=== PATIENT | female | born 1935 | race Caucasian/White ===

== ENCOUNTER 2017-08-19 11:35 | Inpatient (IN) | payer MEDICARE ==
[~2017-08-19] VITALS: Ht 165.1 cm; Wt 79.9 kg
[2017-08-19 12:51] LABS: BASOPHILS % (AUTO) 0.2 % (0.0-5.0); EOSINOPHILS % (AUTO) 0.4 % (0.0-8.0); HEMATOCRIT 34.5 % (36-48); LYMPHOCYTES % (AUTO) 11.8 % (21.0-51.0); MEAN CORPUSCULAR HEMOGLOBIN 30.4 pg (27.0-33.0); MEAN CORPUSCULAR HGB CONC 34.3 g/dL (32.0-36.0); MEAN CORPUSCULAR VOLUME 88.7 fL (79-99); MONOCYTES % (AUTO) 9.6 % (3.0-13.0); PLATELET COUNT (AUTO) 306 K/uL (130-400); RED BLOOD CELL COUNT(AUTO) 3.89 MIL/uL (4.00-5.50); RED CELL DISTRIBUTION WIDTH 12.9 % (11.0-15.5); WHITE BLOOD COUNT (AUTO) 9.5 K/uL (4.8-10.8)
[2017-08-19 12:54] LABS: ALBUMIN 2.4 g/dL (3.5-5.0); BILIRUBIN,TOTAL 0.5 mg/dL (0.2-1.0); CREATININE 0.9 mg/dL (0.5-1.5); TOTAL PROTEIN, SERUM 6.4 g/dL (6.0-8.3)
[2017-08-19 13:00] LABS: POTASSIUM 2.5 mmol/L (3.5-5.1)
[2017-08-19] MEDS ORDERED: MAGNESIUM OXIDE 400 MG TABLET PO ONE (13:47)
[2017-08-19] MEDS ORDERED: CALCIUM GLUCONATE 1 GM/10 ML VIAL IV ONE (13:47)
[2017-08-19] MEDS ORDERED: POTASSIUM BICARB/CIT AC 25 MEQ TABLET.EFF ONE (13:47)
[2017-08-19] MEDS ORDERED: DEXTROSE 5%-WATER 50 ML IV ONE (13:48)
[2017-08-19] MEDS ORDERED: POTASSIUM CHLORIDE 20MEQ/100ML 100 ML IV ONE (19:30)
[2017-08-19] MEDS ORDERED: POTASSIUM CHLORIDE 10% ELIXIR 20 MEQ/15 ML UDCUP PO PRN (21:00)
[2017-08-19] MEDS ORDERED: POTASSIUM CHLORIDE 20MEQ/100ML 100 ML IV PRN (21:00)
[2017-08-19] MEDS ORDERED: LIDOCAINE HCL-MPF 1% 2ML VIAL IVP PRN ×2 (21:00)
[2017-08-19] MEDS ORDERED: POTASSIUM CHLORIDE 20 MEQ ERTAB PO PRN ×2 (21:00)
[2017-08-19] MEDS ORDERED: GLUCAGON 1MG KIT 1 MG ML IM PRN (21:15)
[2017-08-19] MEDS ORDERED: ONDANSETRON HCL MDV 20ML 2 MG/ML VIAL IVP PRN (21:15)
[2017-08-19] MEDS ORDERED: MAGNESIUM SULFATE 1 GM in SODIUM CHLORIDE 0.9% 50 ML IV SCH (21:15)
[2017-08-19] MEDS ORDERED: ACETAMINOPHEN 325 MG TAB PO PRN (21:15)
[2017-08-19] MEDS ORDERED: DEXTROSE 50%-WATER 50 ML DISP.SYRIN IV PRN (21:15)
[2017-08-19 21:34] VITALS: BP 162/80
[2017-08-19 23:25] VITALS: BP 159/62
[2017-08-20] MEDS: LEVOFLOXACIN 500 MG/D5W 100 ML 100 ML IV SCH ×2 (00:35→23:14)
[2017-08-20 03:35] VITALS: BP 165/84
[2017-08-20 05:21] LABS: HEMATOCRIT 33.8 % (36-48); MEAN CORPUSCULAR HGB CONC 35.2 g/dL (32.0-36.0); MEAN CORPUSCULAR VOLUME 88.2 fL (79-99); PLATELET COUNT (AUTO) 323 K/uL (130-400); RED BLOOD CELL COUNT(AUTO) 3.83 MIL/uL (4.00-5.50)
[2017-08-20 05:34] LABS: ALBUMIN 2.4 g/dL (3.5-5.0); BILIRUBIN,TOTAL 0.4 mg/dL (0.2-1.0); CREATININE 0.7 mg/dL (0.5-1.5); TOTAL PROTEIN, SERUM 6.6 g/dL (6.0-8.3)
[2017-08-20 05:36] LABS: POTASSIUM 2.7 mmol/L (3.5-5.1)
[2017-08-20] MEDS: POTASSIUM CHLORIDE 20MEQ/100ML 100 ML IV PRN ×2 (05:39→11:55)
[2017-08-20] MEDS: INSULIN HUMULIN R 100 UNIT/ML 3ML SQ SCH ×4 (07:26→21:00)
[2017-08-20 08:00] VITALS: BP 152/91
[2017-08-20] MEDS ORDERED: ONDANSETRON HCL 4 MG/2 ML VIAL ONE (08:02)
[2017-08-20] MEDS ORDERED: ENOXAPARIN SODIUM 40 MG/0.4 ML SYRINGE SQ SCH (09:00)
[2017-08-20] MEDS: MAGNESIUM 2GM PREMIX 50ML 50 ML IV SCH (09:30)
[2017-08-20 11:00] VITALS: BP 153/79
[2017-08-20] MEDS: SODIUM CHLORIDE 0.9% 1000ML 1,000 ML IV SCH (11:55)
[2017-08-20 16:00] VITALS: BP 154/79
[2017-08-20] MEDS ORDERED: AMIO100T4 PO (16:04)
[2017-08-20] MEDS ORDERED: METF500T6 PO (16:04)
[2017-08-20] MEDS ORDERED: METO-472 PO (16:04)
[2017-08-20] MEDS ORDERED: IRBE1TAB43 PO (16:04)
[2017-08-20] MEDS ORDERED: APIX2.5T PO (16:04)
[2017-08-20] MEDS ORDERED: SIMV40TA59 PO (16:04)
[2017-08-20] MEDS: POTASSIUM CHLORIDE 10% ELIXIR 20 MEQ/15 ML UDCUP PO PRN ×2 (16:40→21:14)
[2017-08-20 19:35] VITALS: BP 161/95
[2017-08-20] MEDS ORDERED: AMIODARONE HCL 200 MG TABLET PO STA (21:03)
[2017-08-20] MEDS: APIXABAN 2.5 MG TABLET PO SCH (21:13)
[2017-08-20] MEDS: ATORVASTATIN CALCIUM 20 MG TABLET PO SCH (21:13)
[2017-08-20] MEDS ORDERED: LABETALOL 20 MG/4 ML DISP.SYRIN IV PRN (23:15)
[2017-08-20 23:20] VITALS: BP 169/108
[2017-08-21 03:40] VITALS: BP 140/75
[2017-08-21] MEDS: INSULIN HUMULIN R 100 UNIT/ML 3ML SQ SCH ×4 (05:26→20:35)
[2017-08-21 05:59] LABS: BASOPHILS % (AUTO) 0.3 % (0.0-5.0); EOSINOPHILS % (AUTO) 1.7 % (0.0-8.0); HEMATOCRIT 35.6 % (36-48); LYMPHOCYTES % (AUTO) 13.7 % (21.0-51.0); MEAN CORPUSCULAR HEMOGLOBIN 31.3 pg (27.0-33.0); MEAN CORPUSCULAR HGB CONC 34.7 g/dL (32.0-36.0); MEAN CORPUSCULAR VOLUME 90.3 fL (79-99); MONOCYTES % (AUTO) 8.3 % (3.0-13.0); PLATELET COUNT (AUTO) 337 K/uL (130-400); RED BLOOD CELL COUNT(AUTO) 3.95 MIL/uL (4.00-5.50); RED CELL DISTRIBUTION WIDTH 13.1 % (11.0-15.5); WHITE BLOOD COUNT (AUTO) 8.1 K/uL (4.8-10.8)
[2017-08-21 06:07] LABS: CREATININE 0.7 mg/dL (0.5-1.5); POTASSIUM 3.5 mmol/L (3.5-5.1)
[2017-08-21] MEDS: POTASSIUM CHLORIDE 10% ELIXIR 20 MEQ/15 ML UDCUP PO PRN ×2 (06:14→17:25)
[2017-08-21] MEDS: MAGNESIUM 2GM PREMIX 50ML 50 ML IV SCH (06:15)
[2017-08-21] MEDS ORDERED: METOPROLOL TARTRATE 50 MG TAB ONE (06:52)
[2017-08-21] MEDS ORDERED: AMIODARONE HCL 200 MG TABLET PO ONE (06:52)
[2017-08-21] MEDS: AMIODARONE HCL 200 MG TABLET PO SCH (06:54)
[2017-08-21] MEDS: METOPROLOL TARTRATE 50 MG TAB PO SCH (06:54)
[2017-08-21 08:49] VITALS: BP 125/66
[2017-08-21 08:55] VITALS: BP 170/104
[2017-08-21] MEDS: METFORMIN HCL 500 MG TABLET PO SCH ×2 (09:01→16:43)
[2017-08-21] MEDS: APIXABAN 2.5 MG TABLET PO SCH ×2 (09:02→20:30)
[2017-08-21] MEDS: SODIUM CHLORIDE 0.9% 1000ML 1,000 ML IV SCH (09:03)
[2017-08-21] MEDS: HYDROCHLOROTHIAZIDE PO SCH (10:15)
[2017-08-21] MEDS: IRBESARTAN PO SCH (10:15)
[2017-08-21] MEDS: [UNRECOGNIZED DRUG - OTHER] PO SCH (10:15)
[2017-08-21] MEDS ORDERED: MAGNESIUM 2GM PREMIX 50ML 50 ML IV SCH (11:30)
[2017-08-21 12:14] VITALS: BP 182/82
[2017-08-21] MEDS: HYDRALAZINE HCL 20 MG/ML VIAL IV PRN (13:07)
[2017-08-21] MEDS ORDERED: ZOLPIDEM TARTRATE 5 MG TAB PO PRN (14:30)
[2017-08-21 16:44] VITALS: BP 177/88
[2017-08-21] MEDS: CLONIDINE HCL 0.1 MG TABLET PO PRN (16:44)
[2017-08-21 19:20] VITALS: BP 141/80
[2017-08-21] MEDS: ATORVASTATIN CALCIUM 20 MG TABLET PO SCH (20:30)
[2017-08-21] MEDS: LEVOFLOXACIN 500 MG/D5W 100 ML 100 ML IV SCH (23:10)
[2017-08-22 00:04] VITALS: BP 166/71
[2017-08-22 04:05] VITALS: BP 154/93
[2017-08-22 05:41] LABS: BASOPHILS % (AUTO) 0.2 % (0.0-5.0); EOSINOPHILS % (AUTO) 3.1 % (0.0-8.0); HEMATOCRIT 38.8 % (36-48); LYMPHOCYTES % (AUTO) 15.6 % (21.0-51.0); MEAN CORPUSCULAR HEMOGLOBIN 30.9 pg (27.0-33.0); MEAN CORPUSCULAR HGB CONC 34.1 g/dL (32.0-36.0); MEAN CORPUSCULAR VOLUME 90.8 fL (79-99); MONOCYTES % (AUTO) 9.8 % (3.0-13.0); NEUTROPHILS % (AUTO) 71.3 % (40.0-77.0); PLATELET COUNT (AUTO) 363 K/uL (130-400); RED BLOOD CELL COUNT(AUTO) 4.28 MIL/uL (4.00-5.50); RED CELL DISTRIBUTION WIDTH 13.5 % (11.0-15.5); WHITE BLOOD COUNT (AUTO) 8.8 K/uL (4.8-10.8)
[2017-08-22] MEDS: INSULIN HUMULIN R 100 UNIT/ML 3ML SQ SCH ×2 (05:46→11:30)
[2017-08-22 06:46] LABS: CREATININE 0.7 mg/dL (0.5-1.5); POTASSIUM 4.1 mmol/L (3.5-5.1)
[2017-08-22 07:00] VITALS: BP 153/95
[2017-08-22] MEDS: HYDROCHLOROTHIAZIDE PO SCH (09:00)
[2017-08-22] MEDS: [UNRECOGNIZED DRUG - OTHER] PO SCH (09:00)
[2017-08-22] MEDS: IRBESARTAN PO SCH (09:00)
[2017-08-22] MEDS: AMIODARONE HCL 200 MG TABLET PO SCH (09:12)
[2017-08-22] MEDS: METOPROLOL TARTRATE 50 MG TAB PO SCH (09:15)
[2017-08-22] MEDS: APIXABAN 2.5 MG TABLET PO SCH (09:15)
[2017-08-22] MEDS: METFORMIN HCL 500 MG TABLET PO SCH ×2 (09:16→15:32)
[2017-08-22 11:00] VITALS: BP 148/75
[2017-08-22] MEDS ORDERED: IRBE300T19 PO (13:57)
[2017-08-22] MEDS: CLONIDINE HCL 0.1 MG TABLET PO PRN (15:33)
[2017-08-22] MEDS: HYDRALAZINE HCL 20 MG/ML VIAL IV PRN (15:59)
[2017-08-22 16:00] VITALS: BP 173/85
== END 2017-08-22 17:59 | disposition home or self-care (01) | DRG 641 ==
LOC: EDH 11:35 → EDHIP 15:13 → 3AH 19:51
PROVIDERS: ADMIT Family Medicine; ATTEND Family Medicine
DX: E87.6 Hypokalemia (principal); E83.42 Hypomagnesemia; E83.51 Hypocalcemia; I48.91 Unspecified atrial fibrillation; I10 Essential (primary) hypertension; E11.9 Type 2 diabetes mellitus without complications; E78.5 Hyperlipidemia, unspecified; K58.0 Irritable bowel syndrome with diarrhea; Z87.01 Personal history of pneumonia (recurrent); Z79.01 Long term (current) use of anticoagulants; Z80.1 Family history of malignant neoplasm of trachea, bronchus and lung; Z82.49 Family history of ischemic heart disease and other diseases of the circulatory system; Z90.710 Acquired absence of both cervix and uterus; Z98.49 Cataract extraction status, unspecified eye; Z88.2 Allergy status to sulfonamides; M19.90 Unspecified osteoarthritis, unspecified site
CPT/HCPCS: 36415; 80048; 80053; 82550; 82948; 83735; 84132; 84443; 85025; 85027; 93005; 97039; J0360; J0610; J1650; J1956; J2405; J3475; J3480; J3490; J7060

== ENCOUNTER → 2018-06-22 | Outpatient (CLI) | payer MEDICARE ==
[~2018-06-22] MED LIST: AMIO100T4 PO; APIX2.5T PO; IRBE300T19 PO; METF-444 PO; METO-472 PO; SIMV40TA59 PO
== END | disposition home or self-care (01) ==
LOC: RAH 09:33
PROVIDERS: ATTEND Internal Medicine
DX: I65.23 Occlusion and stenosis of bilateral carotid arteries (principal); I10 Essential (primary) hypertension; G45.9 Transient cerebral ischemic attack, unspecified
CPT/HCPCS: 76770; 93880; 93975

== ENCOUNTER → 2018-07-28 | Outpatient (CLI) | payer MEDICARE | END | disposition home or self-care (01) | LOC: RAH 07:32 | PROVIDERS: ATTEND Internal Medicine | DX: R10.11 Right upper quadrant pain (principal); R11.0 Nausea | CPT/HCPCS: 76700 ==

== ENCOUNTER → 2019-05-18 | Outpatient (CLI) | payer MEDICARE ==
[~2019-05-18] MED LIST changes: +IRBE300T18 PO; -IRBE300T19 PO
== END | disposition home or self-care (01) ==
LOC: SHCH 08:48
PROVIDERS: ATTEND Internal Medicine Cardiovascular Disease
DX: I65.22 Occlusion and stenosis of left carotid artery (principal)
CPT/HCPCS: 93880

== ENCOUNTER → 2020-09-10 | Outpatient (CLI) | payer MEDICARE | END | disposition home or self-care (01) | LOC: SHCH 09:13 | PROVIDERS: ATTEND Internal Medicine Cardiovascular Disease | DX: I65.23 Occlusion and stenosis of bilateral carotid arteries (principal) | CPT/HCPCS: 93880 ==

== ENCOUNTER → 2021-05-28 | Outpatient (CLI) | payer OTHER | END | disposition home or self-care (01) | LOC: SHCH 14:19 | PROVIDERS: ATTEND Internal Medicine Cardiovascular Disease | DX: I35.8 Other nonrheumatic aortic valve disorders (principal); I11.9 Hypertensive heart disease without heart failure; E11.9 Type 2 diabetes mellitus without complications; E78.5 Hyperlipidemia, unspecified; E66.9 Obesity, unspecified | CPT/HCPCS: 93306 ==

== ENCOUNTER 2021-09-09 18:16 | Emergency (ER) | payer OTHER ==
[~2021-09-09] VITALS: Ht 165.1 cm; Wt 79.4 kg
[2021-09-09 18:48] LABS: BASOPHILS % (AUTO) 0.3 % (0.0-5.0); EOSINOPHILS % (AUTO) 0.3 % (0.0-8.0); HEMATOCRIT 38.8 % (36-48); LYMPHOCYTES % (AUTO) 18.3 % (21.0-51.0); MEAN CORPUSCULAR HGB CONC 33.5 g/dL (32.0-36.0); MEAN CORPUSCULAR VOLUME 89.4 fL (79-99); MONOCYTES % (AUTO) 5.4 % (3.0-13.0); NEUTROPHILS % (AUTO) 75.4 % (40.0-77.0); PLATELET COUNT (AUTO) 236 K/uL (130-400); RED BLOOD CELL COUNT(AUTO) 4.34 MIL/uL (4.00-5.50); RED CELL DISTRIBUTION WIDTH 12.6 % (11.0-15.5); WHITE BLOOD COUNT (AUTO) 10.1 K/uL (4.8-10.8)
[2021-09-09 19:00] LABS: CREATININE 1.1 mg/dL (0.5-1.5); POTASSIUM 3.1 mmol/L (3.5-5.1)
[2021-09-09 19:07] LABS: ALBUMIN 3.9 g/dL (3.5-5.0); BILIRUBIN,TOTAL 0.4 mg/dL (0.2-1.0); TOTAL PROTEIN, SERUM 8.1 g/dL (6.0-8.3)
[2021-09-09 19:25] LABS: APPEARANCE,URINE Clear (CLEAR); BILIRUBIN,URINE Negative (NEGATIVE); COLOR,URINE Yellow (YELLOW); GLUCOSE, URINE (UA) Negative (NEGATIVE); KETONES,URINE Negative (NEGATIVE); LEUKOCYTE ESTERASE ,URINE Small (NEGATIVE); NITRATE,URINE Negative (NEGATIVE); OCCULT BLOOD,URINE Trace (NEGATIVE); PH,URINE 6.5 (5.0-8.0); PROTEIN,URINE POS 2+ mg/dL (NEGATIVE)
[2021-09-09] MEDS ORDERED: NIFEDIPINE 10 MG CAP PO ONE (19:30)
[2021-09-09] MEDS ORDERED: 0.9% NACL 500ML IV.SOLN 500 ML IV ONE (19:30)
[2021-09-09] MEDS ORDERED: AMOX/CLAV 875/125MG TAB PO ONE (19:30)
[2021-09-09] MEDS ORDERED: PREDNISONE 20 MG TABLET PO ONE (19:30)
[2021-09-09 19:40] LABS: BACTERIA,URINE Few /HPF (None Seen); RBC,URINE 0-1 /HPF (0-1)
[2021-09-09 19:41] LABS: SQUAMOUS EPITHELIAL CELL,UR Rare /HPF (0-2)
[2021-09-09] MEDS ORDERED: POTASSIUM BICARB/CIT AC 25 MEQ TABLET.EFF PO ONE (20:30)
[2021-09-09] MEDS ORDERED: CEFTRIAXONE 1G VIAL IVP ONE (20:30)
[2021-09-09 20:38] VITALS: BP 167/74
[2021-09-09] MEDS ORDERED: CEPH500B PO (20:47)
== END 2021-09-09 21:38 | disposition home or self-care (01) ==
LOC: EDH 18:16
DX: I10 Essential (primary) hypertension (principal); N39.0 Urinary tract infection, site not specified; E11.9 Type 2 diabetes mellitus without complications; E78.00 Pure hypercholesterolemia, unspecified; Z79.01 Long term (current) use of anticoagulants; Z79.52 Long term (current) use of systemic steroids; Z79.899 Other long term (current) drug therapy; Z88.2 Allergy status to sulfonamides
CPT/HCPCS: 36415; 71045; 80053; 81001; 84484; 85025; 87088; 93005; 96372; 99285; J0696; 96374; J7040

== ENCOUNTER → 2021-11-02 | Outpatient (CLI) | payer OTHER ==
[~2021-11-02] MED LIST changes: +CEPH500B PO
[2021-11-02 12:31] LABS: BASOPHILS % (AUTO) 0.4 % (0.0-5.0); EOSINOPHILS % (AUTO) 1.6 % (0.0-8.0); HEMATOCRIT 36.8 % (36-48); LYMPHOCYTES % (AUTO) 24.9 % (21.0-51.0); MEAN CORPUSCULAR HEMOGLOBIN 29.5 pg (27.0-33.0); MEAN CORPUSCULAR HGB CONC 32.1 g/dL (32.0-36.0); MONOCYTES % (AUTO) 10.4 % (3.0-13.0); NEUTROPHILS % (AUTO) 62.3 % (40.0-77.0); PLATELET COUNT (AUTO) 302 K/uL (130-400); RED CELL DISTRIBUTION WIDTH 12.8 % (11.0-15.5); WHITE BLOOD COUNT (AUTO) 7.3 K/uL (4.8-10.8)
[2021-11-02 12:52] LABS: CREATININE 1.1 mg/dL (0.5-1.5); MAGNESIUM 1.7 mg/dL (1.80-2.40); POTASSIUM 4.1 mmol/L (3.5-5.1)
[2021-11-02 13:14] LABS: APPEARANCE,URINE CLEAR (CLEAR); BILIRUBIN,URINE NEGATIVE (NEGATIVE); COLOR,URINE YELLOW (YELLOW); GLUCOSE, URINE (UA) NEGATIVE (NEGATIVE); KETONES,URINE NEGATIVE (NEGATIVE); LEUKOCYTE ESTERASE ,URINE MODERATE (NEGATIVE); NITRATE,URINE NEGATIVE (NEGATIVE); OCCULT BLOOD,URINE NEGATIVE (NEGATIVE); PROTEIN,URINE NEGATIVE (NEGATIVE); UROBILINOGEN,URINE 0.2 mg/dL (0.2-1.0)
[2021-11-02 13:29] LABS: BACTERIA,URINE Rare /HPF (None Seen); RBC,URINE 0-1 /HPF (0-1); SQUAMOUS EPITHELIAL CELL,UR Rare /HPF (0-2)
== END | disposition home or self-care (01) ==
LOC: LAB 08:20
PROVIDERS: ATTEND Physician Assistant
DX: I48.0 Paroxysmal atrial fibrillation (principal); Z79.899 Other long term (current) drug therapy
CPT/HCPCS: 36415; 80048; 81001; 83735; 85025; 87077; 87088; 87186

== ENCOUNTER 2022-07-26 11:37 | Observation (INO) | payer OTHER ==
[~2022-07-26] VITALS: Ht 167.6 cm; Wt 74.4 kg
[2022-07-26 12:28] LABS: CREATININE 1.1 mg/dL (0.5-1.5); POTASSIUM 3.7 mmol/L (3.5-5.1)
[2022-07-26 12:30] LABS: BASOPHILS % (AUTO) 0.4 % (0.0-5.0); EOSINOPHILS % (AUTO) 0.5 % (0.0-8.0); HEMATOCRIT 33.7 % (36-48); MEAN CORPUSCULAR HEMOGLOBIN 29.7 pg (27.0-33.0); MEAN CORPUSCULAR VOLUME 92.6 fL (79-99); NEUTROPHILS % (AUTO) 80.7 % (40.0-77.0); PLATELET COUNT (AUTO) 303 K/uL (130-400); RED BLOOD CELL COUNT(AUTO) 3.64 MIL/uL (4.00-5.50); RED CELL DISTRIBUTION WIDTH 13.2 % (11.0-15.5); WHITE BLOOD COUNT (AUTO) 9.5 K/uL (4.8-10.8)
[2022-07-26 12:33] LABS: ALBUMIN 3.8 g/dL (3.5-5.0); TOTAL PROTEIN, SERUM 7.7 g/dL (6.0-8.3)
[2022-07-26 13:01] LABS: B-TYPE NATRIURETIC PEPTIDE 1080 pg/mL (0-100)
[2022-07-26] MEDS ORDERED: FUROSEMIDE 20MG VIAL IV ONE (13:30)
[2022-07-26] MEDS ORDERED: MAGNESIUM 2GM PREMIX 50ML 50 ML IV SCH (14:00)
[2022-07-26] MEDS ORDERED: FUROSEMIDE 40MG VIAL IV SCH (15:00)
[2022-07-26] MEDS ORDERED: DEXTROSE 50%-WATER 50 ML DISP.SYRIN IV PRN (15:00)
[2022-07-26] MEDS ORDERED: MAGNESIUM 2GM PREMIX 50ML 50 ML IV PRN (15:00)
[2022-07-26] MEDS ORDERED: GLUCAGON 1MG KIT 1 MG ML IM PRN (15:00)
[2022-07-26] MEDS ORDERED: ACETAMINOPHEN 325 MG TAB PO PRN (15:00)
[2022-07-26] MEDS ORDERED: POTASSIUM CHLORIDE 20MEQ/100ML 100 ML IV PRN (15:00)
[2022-07-26] MEDS ORDERED: ONDANSETRON 4MG INJ IVP PRN (15:00)
[2022-07-26] MEDS ORDERED: KCL 20 MEQ ERTAB PO PRN (15:00)
[2022-07-26 16:14] LABS: RETICULOCYTE % (AUTO) 1.9 % (0.42-2.23)
[2022-07-26] MEDS: INSULIN HUMULIN R 100 UNIT/ML 3ML SQ SCH ×2 (16:22→20:09)
[2022-07-26 16:58] LABS: HEMOGLOBIN A1C 6.2 % (4.0-6.0)
[2022-07-26 17:10] VITALS: BP 142/82
[2022-07-26] MEDS: METOPROLOL TARTRATE 25 MG TAB PO SCH ×2 (17:24→21:10)
[2022-07-26 17:38] LABS: % IRON SATURATION 8.2 % (22-44)
[2022-07-26 19:46] VITALS: BP 149/97
[2022-07-26] MEDS ORDERED: METOPROLOL TARTRATE 25 MG TAB PO SCH (21:00)
[2022-07-26] MEDS: ATORVASTATIN 10 MG TABLET PO SCH (21:10)
[2022-07-26] MEDS: APIXABAN 5 MG TABLET PO SCH (21:10)
[2022-07-26] MEDS: IPRATROPIUM 0.5 MG/2.5 ML INH IH PRN (23:25)
[2022-07-27] VITALS (8 sets, daily range): BP systolic 110–156; BP diastolic 69–99
[2022-07-27 03:53] LABS: BASOPHILS % (AUTO) 0.2 % (0.0-5.0); EOSINOPHILS % (AUTO) 0.5 % (0.0-8.0); HEMATOCRIT 32.7 % (36-48); LYMPHOCYTES % (AUTO) 15.2 % (21.0-51.0); MEAN CORPUSCULAR HEMOGLOBIN 29.7 pg (27.0-33.0); MEAN CORPUSCULAR HGB CONC 32.1 g/dL (32.0-36.0); MEAN CORPUSCULAR VOLUME 92.4 fL (79-99); MONOCYTES % (AUTO) 8.8 % (3.0-13.0); NEUTROPHILS % (AUTO) 74.9 % (40.0-77.0); PLATELET COUNT (AUTO) 260 K/uL (130-400); RED BLOOD CELL COUNT(AUTO) 3.54 MIL/uL (4.00-5.50); RED CELL DISTRIBUTION WIDTH 13.2 % (11.0-15.5); WHITE BLOOD COUNT (AUTO) 10.2 K/uL (4.8-10.8)
[2022-07-27 04:04] LABS: ALBUMIN 3.6 g/dL (3.5-5.0); MAGNESIUM 1.7 mg/dL (1.80-2.40); POTASSIUM 3.2 mmol/L (3.5-5.1); TOTAL PROTEIN, SERUM 7.1 g/dL (6.0-8.3)
[2022-07-27 04:53] LABS: B-TYPE NATRIURETIC PEPTIDE 1610 pg/mL (0-100)
[2022-07-27] MEDS: METOPROLOL TARTRATE 25 MG TAB PO SCH ×3 (05:42→21:31)
[2022-07-27] MEDS: FUROSEMIDE 40MG VIAL IV SCH ×2 (05:42→17:21)
[2022-07-27] MEDS: INSULIN HUMULIN R 100 UNIT/ML 3ML SQ SCH ×4 (05:43→21:00)
[2022-07-27] MEDS: IPRATROPIUM 0.5 MG/2.5 ML INH IH PRN ×2 (06:47→11:01)
[2022-07-27] MEDS ORDERED: MAGNESIUM 2GM PREMIX 50ML 50 ML IV SCH (07:00)
[2022-07-27] MEDS ORDERED: KCL 20 MEQ ERTAB PO SCH (07:00)
[2022-07-27] MEDS ORDERED: POTASSIUM CHLORIDE 20 MEQ/100 ML BAG IV SCH (07:00)
[2022-07-27] MEDS: LOSARTAN 100 MG TABLET PO SCH (08:58)
[2022-07-27] MEDS: PANTOPRAZOLE 40 MG TAB DR PO SCH (08:58)
[2022-07-27] MEDS: APIXABAN 5 MG TABLET PO SCH ×2 (08:59→20:00)
[2022-07-27] MEDS: AMLODIPINE 2.5 MG TAB PO SCH (08:59)
[2022-07-27] MEDS ORDERED: PHARMACY COMMUNICATION MISC SCH (13:30)
[2022-07-27] MEDS: POTASSIUM CHLORIDE 10% ELIXIR 20 MEQ/15 ML UDCUP PO PRN ×2 (18:21→20:00)
[2022-07-27] MEDS: ATORVASTATIN 10 MG TABLET PO SCH (20:00)
[2022-07-28] MEDS: POTASSIUM CHLORIDE 10% ELIXIR 20 MEQ/15 ML UDCUP PO PRN (00:10)
[2022-07-28] MEDS: FUROSEMIDE 40MG VIAL IV SCH (04:11)
[2022-07-28 04:12] LABS: HEMATOCRIT 32.2 % (36-48); MEAN CORPUSCULAR HEMOGLOBIN 29.6 pg (27.0-33.0); MEAN CORPUSCULAR VOLUME 92.5 fL (79-99); RED BLOOD CELL COUNT(AUTO) 3.48 MIL/uL (4.00-5.50); RED CELL DISTRIBUTION WIDTH 13.3 % (11.0-15.5); WHITE BLOOD COUNT (AUTO) 9.6 K/uL (4.8-10.8)
[2022-07-28 04:28] LABS: ALBUMIN 3.5 g/dL (3.5-5.0); CREATININE 1.1 mg/dL (0.5-1.5)
[2022-07-28 04:53] VITALS: BP 138/83
[2022-07-28] MEDS: METOPROLOL TARTRATE 25 MG TAB PO SCH (05:01)
[2022-07-28] MEDS: IPRATROPIUM 0.5 MG/2.5 ML INH IH PRN (07:08)
[2022-07-28] MEDS: INSULIN HUMULIN R 100 UNIT/ML 3ML SQ SCH ×2 (07:30→11:30)
[2022-07-28] MEDS: LOSARTAN 100 MG TABLET PO SCH (08:15)
[2022-07-28] MEDS: AMLODIPINE 2.5 MG TAB PO SCH (08:15)
[2022-07-28] MEDS: APIXABAN 5 MG TABLET PO SCH (08:15)
[2022-07-28] MEDS: PANTOPRAZOLE 40 MG TAB DR PO SCH (08:15)
[2022-07-28 08:51] VITALS: BP 141/79
[2022-07-28] MEDS ORDERED: FUROSEMIDE 20 MG TABLET PO SCH (09:00)
[2022-07-28] MEDS ORDERED: METOPROLOL SUCCINATE 50 MG TAB.SR.24H PO SCH (09:15)
[2022-07-28 12:57] VITALS: BP 149/86
== END 2022-07-28 14:20 | disposition home or self-care (01) ==
LOC: EDH 11:37 → EDHIP 14:37 → 2AH 16:29
PROVIDERS: ADMIT Hospitalist; ATTEND Hospitalist
DX: J96.01 Acute respiratory failure with hypoxia (principal); I48.20 Chronic atrial fibrillation, unspecified; E83.42 Hypomagnesemia; I11.0 Hypertensive heart disease with heart failure; I50.32 Chronic diastolic (congestive) heart failure; E11.9 Type 2 diabetes mellitus without complications; D64.9 Anemia, unspecified; G47.00 Insomnia, unspecified; E66.9 Obesity, unspecified; E78.00 Pure hypercholesterolemia, unspecified; H81.09 Meniere's disease, unspecified ear; K59.00 Constipation, unspecified; R74.8 Abnormal levels of other serum enzymes; K58.9 Irritable bowel syndrome, unspecified; B34.9 Viral infection, unspecified; Z79.01 Long term (current) use of anticoagulants; Z79.899 Other long term (current) drug therapy; Z90.710 Acquired absence of both cervix and uterus; Z79.84 Long term (current) use of oral hypoglycemic drugs; Z98.49 Cataract extraction status, unspecified eye; Z68.26 Body mass index [BMI] 26.0-26.9, adult
CPT/HCPCS: 96365; 96366 ×2; 96375; 99285; 83036; 83735 ×2; 84484; 80053 ×3; 83880 ×2; 82728; 85025 ×2; 82948 ×8; 82607; 36415 ×3; 71045; 93005 ×2; 94640 ×4; 94664; 96376 ×2; 96361; 84132; 93306; 93356; 85027; G0378 ×45; J3475 ×2; J1940 ×4; J3480

== ENCOUNTER → 2022-08-09 | Outpatient (CLI) | payer OTHER ==
[~2022-08-09] MED LIST changes: -AMIO100T4 PO; -APIX2.5T PO; -IRBE300T18 PO; -METO-472 PO
[2022-08-09 13:26] LABS: ALBUMIN 3.8 g/dL (3.5-5.0); MAGNESIUM 1.3 mg/dL (1.80-2.40); POTASSIUM 3.8 mmol/L (3.5-5.1); TOTAL PROTEIN, SERUM 7.4 g/dL (6.0-8.3)
== END | disposition home or self-care (01) ==
LOC: LAB 09:30
PROVIDERS: ATTEND Physician Assistant
DX: I10 Essential (primary) hypertension (principal)
CPT/HCPCS: 36415; 80053; 83735; 83880

== ENCOUNTER → 2022-08-19 | Outpatient (CLI) | payer OTHER ==
[~2022-08-19] MED LIST changes: -CEPH500B PO; +CHOL-34 PO; +CYAN-52 PO; +FAMO40TA7 PO; +LORA10TA7 PO; +METO-391 PO; +NITR0.4T50 SL; +OMEP40CA21 PO; -SIMV40TA59 PO; +VITAMIN K PO
== END | disposition home or self-care (01) ==
LOC: SHCH 10:14
PROVIDERS: ATTEND Internal Medicine Cardiovascular Disease
DX: I65.23 Occlusion and stenosis of bilateral carotid arteries (principal)
CPT/HCPCS: 93880

== ENCOUNTER → 2022-11-03 | Outpatient (CLI) | payer OTHER ==
[2022-11-03 16:39] LABS: CREATININE 1.1 mg/dL (0.5-1.5); MAGNESIUM 1.2 mg/dL (1.80-2.40); POTASSIUM 3.8 mmol/L (3.5-5.1)
== END | disposition home or self-care (01) ==
LOC: LAB 14:08
PROVIDERS: ATTEND Internal Medicine Cardiovascular Disease
DX: I48.19 Other persistent atrial fibrillation (principal)
CPT/HCPCS: 36415; 80048; 83735

== ENCOUNTER → 2022-11-16 | Outpatient (CLI) | payer OTHER ==
[2022-11-16 12:52] LABS: ALBUMIN 3.6 g/dL (3.5-5.0); BILIRUBIN,TOTAL 0.5 mg/dL (0.2-1.0); CREATININE 1.2 mg/dL (0.5-1.5); POTASSIUM 3.7 mmol/L (3.5-5.1); TOTAL PROTEIN, SERUM 7.7 g/dL (6.0-8.3)
== END | disposition home or self-care (01) ==
LOC: LAB 09:47
PROVIDERS: ATTEND Internal Medicine Cardiovascular Disease
DX: I48.0 Paroxysmal atrial fibrillation (principal)
CPT/HCPCS: 36415; 80053

== ENCOUNTER → 2022-12-30 | Outpatient (CLI) | payer OTHER ==
[~2022-12-30] MED LIST changes: +APIX5TAB PO; -CHOL-34 PO; -CYAN-52 PO; +CYAN100099 PO; -FAMO40TA7 PO; +FURO20TA4 PO; -LORA10TA7 PO; +LOSA25TA41 PO; +MAGN400T40 PO; +OMEP20CA12 PO; -OMEP40CA21 PO; +PROP325C5 PO; +ROSU10TA28 PO; +SPIR25TA6 PO; -VITAMIN K PO
[2022-12-30 16:19] LABS: BASOPHILS # (AUTO) 0.04 K/uL (0.00-0.20); BASOPHILS % (AUTO) 0.4 % (0.0-5.0); EOSINOPHILS # (AUTO) 0.09 K/uL (0.00-0.70); EOSINOPHILS % (AUTO) 0.8 % (0.0-8.0); HEMATOCRIT 37.6 % (36-48); IMMATURE GRANULOCYTE ABSOLUTE 0.04 K/uL (0-1); LYMPHOCYTES % (AUTO) 18.4 % (21.0-51.0); MEAN CORPUSCULAR HEMOGLOBIN 29.3 pg (27.0-33.0); MEAN CORPUSCULAR HGB CONC 31.6 g/dL (32.0-36.0); MEAN CORPUSCULAR VOLUME 92.6 fL (79-99); MONOCYTES # (AUTO) 0.9 K/uL (0.1-1.0); MONOCYTES % (AUTO) 7.9 % (3.0-13.0); NEUTROPHILS # (AUTO) 7.7 K/uL (1.8-7.7); NEUTROPHILS % (AUTO) 72.1 % (40.0-77.0); PLATELET COUNT (AUTO) 297 K/uL (130-400); RED BLOOD CELL COUNT(AUTO) 4.06 MIL/uL (4.00-5.50); RED CELL DISTRIBUTION WIDTH 13.5 % (11.0-15.5); WHITE BLOOD COUNT (AUTO) 10.7 K/uL (4.8-10.8)
[2022-12-30 16:36] LABS: ALBUMIN 3.9 g/dL (3.5-5.0); BILIRUBIN,TOTAL 0.4 mg/dL (0.2-1.0); CREATININE 1.6 mg/dL (0.5-1.5); MAGNESIUM 1.6 mg/dL (1.80-2.40); POTASSIUM 4.6 mmol/L (3.5-5.1); TOTAL PROTEIN, SERUM 8.4 g/dL (6.0-8.3)
== END | disposition home or self-care (01) ==
LOC: LAB 13:40
PROVIDERS: ATTEND Internal Medicine Cardiovascular Disease
DX: I10 Essential (primary) hypertension (principal)
CPT/HCPCS: 36415; 80053; 83735; 83880; 85025

== ENCOUNTER → 2023-02-16 | Outpatient (CLI) | payer OTHER ==
[~2023-02-16] MED LIST changes: +ALBUTEROL 0.083% 2.5 MG/3 ML INH IH ONE
== END | disposition home or self-care (01) ==
LOC: RESP 12:26
PROVIDERS: ATTEND Internal Medicine Cardiovascular Disease
DX: R06.00 Dyspnea, unspecified (principal)
CPT/HCPCS: 94060

== ENCOUNTER 2023-03-21 10:05 | Emergency (ER) | payer OTHER ==
[~2023-03-21] VITALS: Ht 167.6 cm; Wt 75.3 kg
[~2023-03-21 10:05] MED LIST changes: -ALBUTEROL 0.083% 2.5 MG/3 ML INH IH ONE
[2023-03-21 10:10] VITALS: BP 177/98; PULSE 57; RESP 16; O2SAT 100
[2023-03-21] MEDS ORDERED: AMOX1TAB16 PO (11:45)
[2023-03-21] MEDS ORDERED: AMOX/CLAV 875/125MG TAB PO ONE (12:00)
== END 2023-03-21 11:55 | disposition home or self-care (01) ==
LOC: EDH 10:05
DX: S92.352A Displaced fracture of fifth metatarsal bone, left foot, initial encounter for closed fracture (principal); E11.621 Type 2 diabetes mellitus with foot ulcer; L97.529 Non-pressure chronic ulcer of other part of left foot with unspecified severity; E78.00 Pure hypercholesterolemia, unspecified; I48.91 Unspecified atrial fibrillation; I11.0 Hypertensive heart disease with heart failure; I50.9 Heart failure, unspecified; Z79.01 Long term (current) use of anticoagulants; Z79.899 Other long term (current) drug therapy; Z88.2 Allergy status to sulfonamides; Z90.710 Acquired absence of both cervix and uterus; X50.1XXA Overexertion from prolonged static or awkward postures, initial encounter; Y93.89 Activity, other specified; Y92.89 Other specified places as the place of occurrence of the external cause; Y99.8 Other external cause status
CPT/HCPCS: 73630

== ENCOUNTER 2023-08-18 08:47 | Day surgery (SDC) | payer OTHER ==
[2023-08-16 13:30] LABS: BASOPHILS # (AUTO) 0.03 K/uL (0.00-0.20); BASOPHILS % (AUTO) 0.3 % (0.0-5.0); EOSINOPHILS # (AUTO) 0.04 K/uL (0.00-0.70); EOSINOPHILS % (AUTO) 0.4 % (0.0-8.0); HEMATOCRIT 33.3 % (36-48); IMMATURE GRANULOCYTE ABSOLUTE 0.05 K/uL (0-1); LYMPHOCYTES # (AUTO) 2.3 K/uL (1.0-4.8); LYMPHOCYTES % (AUTO) 21.4 % (21.0-51.0); MEAN CORPUSCULAR HGB CONC 31.8 g/dL (32.0-36.0); MEAN CORPUSCULAR VOLUME 87.9 fL (79-99); MONOCYTES # (AUTO) 1.1 K/uL (0.1-1.0); MONOCYTES % (AUTO) 9.9 % (3.0-13.0); NEUTROPHILS # (AUTO) 7.3 K/uL (1.8-7.7); NEUTROPHILS % (AUTO) 67.5 % (40.0-77.0); PLATELET COUNT (AUTO) 275 K/uL (130-400); RED BLOOD CELL COUNT(AUTO) 3.79 MIL/uL (4.00-5.50); RED CELL DISTRIBUTION WIDTH 13.9 % (11.0-15.5); WHITE BLOOD COUNT (AUTO) 10.8 K/uL (4.8-10.8)
[2023-08-16 13:38] LABS: CREATININE 1.3 mg/dL (0.5-1.0); POTASSIUM 3.5 mmol/L (3.5-5.1)
[2023-08-16 13:41] LABS: INR 1.13 (0.85-1.15); PROTHROMBIN TIME 13.2 SEC (9.6-11.6)
[2023-08-16 13:42] LABS: PARTIAL THROMBOPLASTIN TIME 32.4 SEC (26.3-35.5)
[2023-08-16 13:53] VITALS: BP 111/70; PULSE 96; RESP 18
[~2023-08-18] VITALS: Ht 165.1 cm; Wt 76.4 kg
[2023-08-18] VITALS (8 sets, daily range): BP systolic 104–147; BP diastolic 47–70; PULSE 57–96; RESP 14–16
[~2023-08-18 08:47] MED LIST changes: +DRON400T7 PO; -LOSA25TA41 PO; +LOSA50TA64 PO; +LUTE20CA PO; -MAGN400T40 PO; -NITR0.4T50 SL; +POTA10CA95 PO; -PROP325C5 PO; -ROSU10TA28 PO; +ROSU10TA72 PO; -SPIR25TA6 PO
[2023-08-18] MEDS ORDERED: PROPOFOL 10 MG/ML 20ML VIAL IV ONE (09:31)
== END 2023-08-18 10:30 | disposition home or self-care (01) ==
LOC: DAH 08:47
PROVIDERS: ATTEND Internal Medicine Cardiovascular Disease
DX: I48.19 Other persistent atrial fibrillation (principal); I08.8 Other rheumatic multiple valve diseases; I95.1 Orthostatic hypotension; E78.5 Hyperlipidemia, unspecified; E11.9 Type 2 diabetes mellitus without complications; E66.9 Obesity, unspecified; Z68.28 Body mass index [BMI] 28.0-28.9, adult; Z80.1 Family history of malignant neoplasm of trachea, bronchus and lung; Z83.3 Family history of diabetes mellitus; Z80.3 Family history of malignant neoplasm of breast; Z82.49 Family history of ischemic heart disease and other diseases of the circulatory system; Z88.2 Allergy status to sulfonamides; Z91.048 Other nonmedicinal substance allergy status; Z79.84 Long term (current) use of oral hypoglycemic drugs; Z79.899 Other long term (current) drug therapy; Z98.49 Cataract extraction status, unspecified eye; Z90.710 Acquired absence of both cervix and uterus
CPT/HCPCS: 80048; 85025; 85610; 85730; 36415; 92960; 82948; 93005 ×2; J2704; A4620; A4215; A4222; A4221; A4663; A4216; A4606; A4223 ×3; J3490

== ENCOUNTER 2025-01-22 08:32 | Observation (INO) | payer OTHER ==
[2025-01-18 11:53] VITALS: BP 129/90; PULSE 86; RESP 18; TEMP 97.6
[2025-01-18 11:53] LABS: IMMATURE GRANULOCYTE ABSOLUTE 0.01 K/uL (0-1); NUCLEATED RED BLOOD CELLS 0.0 % (0.0-0.19); PLATELET COUNT (AUTO) 223 K/uL (130-400); RED BLOOD CELL COUNT(AUTO) 3.50 MIL/uL (4.00-5.50); RED CELL DISTRIBUTION WIDTH 14.2 % (11.0-15.5); WHITE BLOOD COUNT (AUTO) 6.9 K/uL (4.8-10.8)
[2025-01-18 12:25] LABS: CREATININE 1.7 mg/dL (0.5-1.0); GLOMERULAR FILTR. RATE CALC 29.0 mL/min (>90); GLUCOSE,RANDOM 123.0 mg/dL (70-105); SODIUM SERUM 140.0 mmol/L (136-145); UREA NITROGEN, BLOOD 25.0 mg/dL (7-18)
[2025-01-18 12:26] LABS: INR 1.19 (0.85-1.15)
--- NOTE | 2025-01-19 11:45 | EKG ---
[facility] Test Date: 2025-01-18 Test Time: 12:37:35 Pat Name: ARYAN ZAMAN Department: [facility] [place] [id number] Room: Gender: F Segregator: [id number] : 1935 Requested By: NILSON CRAWFORD Order Number: [id number] Reading MD: Travis Royal Measurements Intervals [place] Rate: 76 P: 0 HI: 0 QRS: 13 QRSD: 88 T: 71 QT: 444 QTc: 499 Interpretive Statements Atrial fibrillation Nonspecific T abnormalities, lateral leads Compared to ECG 04/25/2024 11:15:48 T-wave abnormality now present Sinus tachycardia no longer present Atrial premature complex(es) no longer present Prolonged QT interval no longer present Electronically Signed On 01-19-2025 18:56:11 ECOMMERCE MARKETING MANAGER by Travis Royal Please click the below link to view image of tracing.
[2025-01-22] VITALS (10 sets, daily range): BP systolic 132–144; BP diastolic 71–84; PULSE 75–92; RESP 14–18; TEMP 97–98.6
[~2025-01-22] VITALS: Ht 160 cm; Wt 75.6 kg
[~2025-01-22 08:32] MED LIST changes: +CARV12.511 PO; -CYAN100099 PO; -DRON400T7 PO; +HYOS-28 PO; +LOPE2TAB26 PO; -LOSA50TA64 PO; +MAGN500T4 PO; -METO-391 PO; -OMEP20CA12 PO; +OMEP40CA21 PO; +ONDA-243 PO; +PANT40TA54 PO; +POTA-364 PO; -POTA10CA95 PO; -ROSU10TA72 PO; +SACU1TAB PO; +SIMV10TA97 PO; +SPIR25TA6 PO
[2025-01-22] MEDS: 0.9%NACL 1000ML 1,000 ML IV SCH (09:27)
[2025-01-22] MEDS ORDERED: LIDOCAINE HCL 400MG/20ML VIAL ONE (13:55)
[2025-01-22] MEDS ORDERED: SODIUM BICARB 50MEQ 50ML VIAL 50 ML ONE (13:55)
[2025-01-22] MEDS ORDERED: LIDOCAINE HCL 1% MDV 50ML VIAL ONE (13:55)
[2025-01-22] MEDS ORDERED: IODIXANOL 320 MG/ML 100 ML VIAL ONE (13:57)
[2025-01-22] MEDS ORDERED: MIDAZOLAM HCL 1 MG/ML 2ML VIAL ONE ×4 (14:18→17:24)
[2025-01-22] MEDS ORDERED: HEParin-NS 1,000 UNIT/500 ML 500 ML IV ONE ×2 (14:35→16:55)
--- NOTE | 2025-01-22 18:20 | NUR ---
LEFT CHEST ASYMPTOMATIC DRESSING DRY INTACT
[2025-01-22] MEDS ORDERED: NON-FORMULARY MEDICATION 1 EACH (Omeprazole 40 MG) PO PRN (18:30)
[2025-01-22] MEDS ORDERED: HYOSCYAMINE SULFATE 0.125 MG TAB.SUBL SL PRN (19:00)
[2025-01-22] MEDS ORDERED: LOPERAMIDE HCL 2 MG CAP PO PRN (19:00)
--- NOTE | 2025-01-22 20:10 | NUR ---
REPORT GIVEN TO TAMMY [facility] 2ND FLOOR
[2025-01-22] MEDS: (Lutein 20 MG) PO SCH (21:00)
[2025-01-22] MEDS: SACUBITRIL/VALSARTAN 1 EACH TABLET PO SCH (21:42)
--- NOTE | 2025-01-22 23:55 | NUR ---
Refused med Pt refused Lasix and Lutein after education on the medications. Pt stated "I usually take them in the morning".
[2025-01-23 03:28] VITALS: BP 124/74; PULSE 101; RESP 18; TEMP 98.3
[2025-01-23 05:37] VITALS: O2SAT 94
--- NOTE | 2025-01-23 06:53 | EKG ---
[facility] Test Date: 2025-01-23 Test Time: 05:59:44 Pat Name: ARYAN ZAMAN [facility] Room: 221 1 Gender: F Cyber Security Analyst: reta : 1935 Requested By: NILSON CRAWFORD Order Number: [id number] Reading MD: Mukul Bagley Measurements Intervals [place] Rate: 90 P: 87 [place]: 142 QRS: -59 QRSD: 102 T: 118 QT: 407 QTc: 499 Interpretive Statements Ventricular-paced rhythm Compared to ECG 01/18/2025 12:37:35 Atrial fibrillation no longer present T-wave abnormality no longer present Electronically Signed On 01-23-2025 07:20:12 PIPE INSPECTOR by Mukul Bagley Please click the below link to view image of tracing.
[2025-01-23 07:46] VITALS: BP 136/88; PULSE 92; RESP 18; TEMP 97.7
[2025-01-23] MEDS: PoTASSium chl 10% ELIXIR 20MEQ 20 MEQ/15 ML UDCUP PO SCH (09:00)
[2025-01-23 09:20] VITALS: BP 136/88
[2025-01-23] MEDS: SPIRONOLACTONE 25 MG TAB PO SCH (09:21)
[2025-01-23 09:49] VITALS: O2SAT 94
--- NOTE | 2025-01-23 11:02 | HMCIMG ---
EXAM: CR Chest, 1 View. CLINICAL HISTORY: s/p ENAMELER-P COMPARISON: None provided. FINDINGS: LUNGS: Mild left basilar atelectasis. Both lungs are essentially clear. PLEURAL SPACES: No pleural effusion or pneumothorax. MEDIASTINUM: The cardiac size is within normal limits. Status post left-sided pacemaker placement with intact leads in the right and left ventricles. Elevated right hemidiaphragm. BONES: No acute osseous abnormality. IMPRESSION: 1. Status post left-sided pacemaker placement with intact leads in the right and left ventricles. 2. No acute cardiopulmonary findings. /[place]
== END 2025-01-23 10:15 | disposition home or self-care (01) ==
LOC: DAH 08:32 → DAHIP 08:33 → DAH 08:33 → 2DH 20:37
PROVIDERS: ADMIT Internal Medicine Cardiovascular Disease; ATTEND Internal Medicine Cardiovascular Disease
DX: I42.0 Dilated cardiomyopathy (principal); I48.21 Permanent atrial fibrillation; I44.2 Atrioventricular block, complete; I50.42 Chronic combined systolic (congestive) and diastolic (congestive) heart failure; E11.9 Type 2 diabetes mellitus without complications; E78.5 Hyperlipidemia, unspecified; I11.0 Hypertensive heart disease with heart failure; Z79.01 Long term (current) use of anticoagulants; Z79.82 Long term (current) use of aspirin; Z79.899 Other long term (current) drug therapy
CPT/HCPCS: 80048; 85025; 85610; 85730; 36415; 93005 ×2; 33225; 93619; 93650; 33207; 99156; 99157 ×6; 82948; 71045; C1769 ×7; C1894; C2621; C1900; C1898; A4649 ×2; C1732; C1760; G0378 ×16; J3010 ×3; J0690; J3490 ×3; J7030; J0665; J2250 ×4; J2405; J1644 ×2; Q9967; A4215; A4223 ×3; A4222; A4221; A4663; A4216; A4606